=== PATIENT | female | born 1960 | race Caucasian/White ===

== ENCOUNTER 2018-07-12 20:34 | Emergency (ER) | payer OTHER, MEDICAID ==
[2018-07-12 20:47] VITALS: BP 195/86
[2018-07-12] MEDS ORDERED: CHLORDIAZEPOXIDE 25MG PREPK#6 BTL TAKEHOME ONE (21:22)
--- NOTE | 2018-07-12 21:22 | EDPHY ---
H & P Smoking Status: Never smoked Time Seen by Provider: 07/12/18 21:07 HPI/ROS: CHIEF COMPLAINT: "I just need to stop drinking alcohol HISTORY OF PRESENT ILLNESS: 58-year-old female self presents with friend complaining of acute alcohol abuse, requesting sobriety. Denies suicidal homicidal ideation. She was released from an inpatient alcohol detox with sedation facility approximately 3-[address] [facility], name location unknown by patient. She denies hallucination. Denies seizure. Denies chest pain. Denies dyspnea. PRIMARY CARE PROVIDER: REVIEW OF SYSTEMS: 10 systems reviewed and negative with the exception of the elements mentioned in the history of present illness PAST MEDICAL & SURGICAL HISTORY: Home oxygen dependent SOCIAL HISTORY: Nonsmoker PHYSICAL EXAM (Prior to examination, patient consented to physical exam, hands were washed and my usual and customary physical exam procedures followed) 1) GENERAL: Well-developed, well-nourished, alert and oriented. Appears to be in no acute distress. 2) HEAD: Normocephalic, atraumatic 3) HEENT: Pupils equal, round, reactive to light bilaterally. Sclera anicteric. 4) NECK: Full range of motion, no meningeal signs. 5) LUNGS: Clear auscultation bilaterally, no wheezes, no rhonchi, no retractions. 6) HEART: Regular rate and rhythm, no murmur, no heave, no gallop. 7) ABDOMEN: No guarding, no rebound, no focal tenderness, 8) MUSCULOSKELETAL: Moving all extremities, no focal areas of tenderness, no obvious trauma. No peripheral edema or discoloration. 9) BACK: No obvious trauma, no visual or palpable abnormality. 10) SKIN: No rash, no petechiae. 11) Psychiatric: Patient is oriented X 3, there is no agitation. No tremor DIFFERENTIAL DIAGNOSIS: In no particular order including but not limited to acute alcohol abuse, delirium tremens, alcohol withdrawal (Vivi,Maurisio Celeste) Constitutional: Initial Vital Signs Temperature (C) 36.8 C 07/12/18 20:41 Heart Rate 80 07/12/18 20:41 Respiratory Rate 18 07/12/18 20:41 Blood Pressure 195/86 H 07/12/18 20:41 O2 Sat (%) 95 12/16/18 20:41 O2 Delivery Mode Room Air Allergies/Adverse Reactions: No Known Allergies Allergy (Unverified 07/12/18 20:40) Home Medications: Medication Instructions Recorded Lisinopril 07/12/18 Metoprolol Tartrate [Lopressor 100 100 mg PO BID 07/12/18 mg (*)] Omeprazole 07/12/18 busPIRone [Buspar (*)] 07/12/18 MDM/Departure - MDM ED Course/Re-evaluation: Doubt delirium. Patient smells of alcohol. [facility]. Today is Friday. Her friend will take her [facility] the [facility]. Tomorrow morning she will speak with her family about getting into inpatient alcohol detox facility. She forgets the name of the facility she was at a few weeks ago but notes that it was in [facility]. She will be discharged to the [facility] with Librium. Care of patient under supervision of secondary supervising physician Dr Beebe . 9:45 p.m.: At this time I was informed by the nursing staff that the patient is declining to go to the [facility]. She will not be given Librium. Her friend will take her home. I had previously discussed with the patient the dangers of attempting to detoxify from alcohol on her own including , not limited to, delirium, seizure, . (Maurisio Trinidad) The patient was evaluated and managed by the Physician Candy Catcher. My co- signature indicates that I have reviewed this chart and I agree with the findings and plan of care as documented. I am the secondary supervising physician. (Sulema Beebe) - Depart Disposition: Home, Routine, Self-Care Clinical Impression: Alcohol abuse Condition: Good Instructions: Chlordiazepoxide (By mouth), Abuse of Alcohol (ED) Referrals: [facility] [Outside] - As per Instructions
== END 2018-07-12 21:49 | disposition home or self-care (01) ==
DX: F10.10 Alcohol abuse, uncomplicated (principal); Z99.81 Dependence on supplemental oxygen